=== PATIENT | male | born 1970 | race Caucasian/White ===

== ENCOUNTER 2019-07-28 09:48 | Emergency (ER) | payer SELFPAY ==
[2019-07-28 09:55] VITALS: BP 145/75; PULSE 68; TEMP 98.4; BMI 20.7
--- NOTE | 2019-07-28 11:01 | PDOC ---
History of Present Illness - General History Source: Patient - History of Present Illness Initial Comments: 07/28/19 10:55 Patient is a 49-year-old male who presents to the ED with 10 days of left eye watering and inability to close his eye completely. He denies any visual changes. He states he was seen in urgent care and started on valacyclovir, prednisone, wetting drops and melatonin since he has been having trouble sleeping. He states he has not slept in 3 days. He denies any numbness or tingling. He denies any slurred speech or difficulty walking. He denies any fevers or chills. He denies any recent illness. He states he is very sensitive to the light particularly on the left side. <Randi Mendez - Last Filed: 07/28/19 13:46> <Yoan Staples - Last Filed: 07/28/19 17:15> - General Chief Complaint: Facial Droop Stated Complaint: FACIAL DROOP Time Seen by Provider: 07/28/19 10:10 Past History - Past Medical History COPD: No - Immunization History Immunization Up to Date: No - Psycho Social/Smoking Cessation Hx Smoking History: Never smoked Have you smoked in the past 12 months: No Information on smoking cessation initiated: No Hx Alcohol Use: No Drug/Substance Use Hx: No <Randi Mendez - Last Filed: 07/28/19 13:46> <Yoan Staples - Last Filed: 07/28/19 17:15> - Past Medical History Allergies/Adverse Reactions: Allergies Allergy/AdvReac Type Severity Reaction Status Date / Time No Known Allergies Allergy Verified 07/28/19 09:55 Home Medications: Ambulatory Orders Mineral Oil/Petrolatum,White [Systane Nighttime Eye Ointment] 1 drop OU HS 07/28 Valacyclovir HCl [Valtrex -] 1 gm PO TID 07/28/19 predniSONE [Deltasone -] 60 mg PO DAILY 07/28/19 Review of Systems - Review of Systems Comments:: 07/28/19 10:57 - Review of Systems Able to Perform ROS?: Yes Constitutional: No: Fever, Chills, Loss of Appetite, Night Sweats, Weakness HEENTM: No: Eye Pain, Vision changes, Ear Pain, Throat Pain, Throat Swelling, Mouth Pain, Difficulty Swallowing; + inability to close his L eye, + left eye watering, + sensitivity to light left eye Respiratory: No: Cough, Shortness of Breath, Wheezing, Sputum Production Cardiac (ROS): No: Chest Pain, Chest Tightness, Palpitations, Irregular Heart Beat, Edema ABD/GI: No: Nausea, Vomiting, Abdominal Pain, Diarrhea : No Dysuria, No Hematuria, No Frequency, No Urgency, No Vaginal Discharge/ Pain, No Penile Discharge/Pain Musculoskeletal: No: Muscle Pain, Back Pain, Joint Pain, Muscle Weakness, Neck Pain Integumentary: No: Lesions, Rash Neurological: No: Headache, Numbness, Tingling, Weakness, Speech Difficulties <Randi Mendez - Last Filed: 07/28/19 13:46> *Physical Exam - Vital Signs Last Vital Signs Temp Pulse Resp BP Pulse Ox 98.4 F 68 16 145/75 100 07/28/19 09:52 07/28/19 09:52 07/28/19 09:52 07/28/19 09:52 07/28/19 09:52 - Physical Exam 07/28/19 10:59 - Physical Exam General Appearance: Nourished, Appropriately Dressed, No Distress HEENT: EOMI, Normal Voice, No Pharyngeal Erythema, No Muffled/Hoarse voice, No Tonsillar Exudate, No Tonsillar Erythema, No Nasal Congestion, No Rhinorrhea, Hearing Grossly Normal, TMs Normal, No TM Bulging, No TM Dullness, No TM Erythema; Left eye watering, left upper eyelid not closing completely and blinking much less than the right. Neck: Supple, No Lymphadenopathy (R), No Lymphadenopathy (L), No Rigidity, No Decreased range of motion Respiratory/Chest: Lungs Clear, Normal Breath Sounds. No Respiratory Distress, No Accessory Muscle Use Cardiovascular: Regular Rhythm, Regular Rate, S1, S2 Gastrointestinal/Abdominal: Normal Bowel Sounds, Soft. Non-tender, No Guarding , No Rebound, No Rigidity Musculoskeletal: Normal Inspection. No Decreased Range of Motion Extremity: Normal Capillary Refill, Normal Inspection Integumentary: Normal Color, Dry. No Rash Neurologic: horse trainer II-XII NML intact, Fully Oriented, Alert, Normal Mood/Affect, Normal Response; Patient able to furrow his left brow, slight asymmetric smile with a slight left mouth droop, no ataxia, no slurred speech, patient is not aphasic <Randi Mendez D - Last Filed: 07/28/19 13:46> - Vital Signs Last Vital Signs Temp Pulse Resp BP Pulse Ox 98.4 F 68 16 145/75 100 07/28/19 09:52 07/28/19 09:52 07/28/19 09:52 07/28/19 09:52 07/28/19 09:52 <Yoan Staples - Last Filed: 07/28/19 17:15> ED Treatment Course - LABORATORY CBC & Chemistry Diagram: 07/28/19 10:35 07/28/19 10:35 - ADDITIONAL ORDERS Additional order review: 07/28/19 13:47 Laboratory Tests 07/28/19 07/28/19 07/28/19 10:35 10:35 10:35 WBC 10.3 H RBC 5.12 Hgb 15.3 Hct 45.4 MCV 88.8 MCH 29.8 MCHC 33.6 RDW 13.7 Plt Count 312 MPV 7.8 Absolute Neuts (auto) 7.0 Neutrophils % 67.4 Lymphocytes % 22.9 Monocytes % 8.8 Eosinophils % 0.6 Basophils % 0.3 Nucleated RBC % 0 PT with INR 11.50 INR 0.97 Sodium 139 Potassium 4.3 Chloride 107 Carbon Dioxide 24 Anion Gap 8 BUN 17.7 Creatinine 0.8 Est GFR (CKD-EPI)AfAm 119.88 Est GFR (CKD-EPI)NonAf 103.43 Random Glucose 105 Calcium 9.6 Total Bilirubin 0.4 AST 28 ALT 70 H Alkaline Phosphatase 97 Total Protein 7.4 Albumin 4.0 - RADIOLOGY Radiology Studies Ordered: Category Date Time Status HEAD CT WITHOUT CONTRAST [CT] Stat CT Scan 07/28/19 10:12 Ordered <Randi Mendez D - Last Filed: 07/28/19 13:46> - LABORATORY CBC & Chemistry Diagram: 07/28/19 10:35 07/28/19 10:35 - ADDITIONAL ORDERS Additional order review: Laboratory Results 07/28/19 07/28/19 10:35 10:35 PT with INR 11.50 INR 0.97 Sodium 139 Potassium 4.3 Chloride 107 Carbon Dioxide 24 Anion Gap 8 BUN 17.7 Creatinine 0.8 Est GFR (CKD-EPI)AfAm 119.88 Est GFR (CKD-EPI)NonAf 103.43 Random Glucose 105 Calcium 9.6 Total Bilirubin 0.4 AST 28 ALT 70 H Alkaline Phosphatase 97 Total Protein 7.4 Albumin 4.0 07/28/19 10:35 RBC 5.12 MCV 88.8 MCHC 33.6 RDW 13.7 MPV 7.8 Neutrophils % 67.4 Lymphocytes % 22.9 Monocytes % 8.8 Eosinophils % 0.6 Basophils % 0.3 <Yoan Staples - Last Filed: 07/28/19 17:15> Medical Decision Making - Medical Decision Making 07/28/19 11:01 Patient is a 49-year-old male with a left-sided facial droop for the last 10 days. 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 The patient was started on treatment for Lynn's palsy at an urgent care. We will assess further. -CT head ordered -Baseline labs ordered -We will reassess 07/28/19 13:47 The patient and the family have been made aware that there is no acute pathology of the CT scan. They have also been made aware that his symptoms are secondary to Lynn's palsy. He should continue his wetting drops and can continue the medications that were prescribed at the urgent care. The patient should follow-up with his primary doctor within 1 to 2 days for repeat evaluation. He should tape his eye at night to help keep it closed and prevent further injury such as a corneal abrasion. He understands and agrees with this treatment plan and the patient is stable for discharge. <Randi Mendez - Last Filed: 07/28/19 13:46> - Medical Decision Making I reviewed the case of the mid-level practitioner and was available for consultation while in the emergency department 07/28/19 17:15 <Yoan Staples - Last Filed: 07/28/19 17:15> Discharge - Discharge Information Problems reviewed: Yes <Randi Mendez - Last Filed: 07/28/19 13:46> <Yoan Staples - Last Filed: 07/28/19 17:15> - Discharge Information Clinical Impression/Diagnosis: Lynn's palsy Condition: Stable Disposition: HOME - Follow up/Referral Referrals: Albino Kim MD [Staff Physician] - - Patient Discharge Instructions Patient Printed Discharge Instructions: DI for Lynn's Palsy Additional Instructions: Take the medications that were previously prescribed to you by the urgent care. You can tape your eye at night to help keep it closed as it will not stay closed on its own. You should follow-up with neurology within 1 week for repeat evaluation. Print Language: DIVEHI
[2019-07-28 11:03] LABS: BASO % 0.3 % (0-2.0); EOS % 0.6 % (0-4.5); HEMATOCRIT 45.4 % (35.4-49); HEMOGLOBIN 15.3 GM/dL (11.7-16.9); LYMPH % 22.9 % (8-40); MCH 29.8 pg (25.7-33.7); MCHC 33.6 g/dl (32.0-35.9); MEAN CELL VOLUME 88.8 fl (80-96); MEAN PLT VOLUME 7.8 fl (7.5-11.1); MONO % 8.8 % (3.8-10.2); NEUT % 67.4 % (42.8-82.8); PLATELET COUNT 312 K/MM3 (134-434); RBC 5.12 M/mm3 (4.00-5.60); RDW 13.7 % (11.9-15.9); WHITE BLOOD COUNT 10.3 K/mm3 (4.0-10.0)
[2019-07-28 11:17] LABS: INR 0.97 (0.83-1.09); PROTHROMBIN TIME (PATIENT) 11.5 SEC (9.7-13.0)
[2019-07-28 11:35] LABS: BILIRUBIN,TOTAL 0.4 mg/dL (0.2-1); BLOOD UREA NITROGEN 17.7 mg/dL (7-18); CALCIUM 9.6 mg/dL (8.5-10.1); CREATININE 0.8 mg/dL (0.55-1.3); POTASSIUM 4.3 mmol/L (3.5-5.1); TOT PROT 7.4 g/dl (6.4-8.2)
== END 2019-07-28 14:30 | disposition home or self-care (01) ==
LOC: JER 09:48
DX: G51.0 Bell's palsy (principal)
CPT/HCPCS: 36415; 70450-TC; 80053; 85025; 85610; 99283-25